=== PATIENT | male | born 1965 | race Caucasian/White ===

== ENCOUNTER 2018-09-18 09:09 | Outpatient (REF) | payer OTHER, SELFPAY ==
[2018-09-18 21:27] LABS: Hemoglobin A1C 5.3 % (4.5-6.2)
[2018-09-18 21:29] LABS: ALT 24 U/L (12-78); AST 19 U/L (15-37); Alkaline Phosphatase 66 U/L (46-116); BUN 17 mg/dL (7-18); Bilirubin, Total 0.7 mg/dL (0.2-1.0); CREATININE 0.92 mg/dL (0.70-1.30); Calcium 9.9 mg/dL (8.5-10.1); Chloride 104 mmol/L (98-107); Cholesterol 197 mg/dL (50-200); Glucose 101 mg/dL (70-100); HDL Cholesterol 54 mg/dL (40-60); LDL CHOLESTEROL 109 mg/dL (<100); Potassium 4.4 mmol/L (3.5-5.1); Sodium 142 mmol/L (136-145); Triglyceride 170 mg/dL (30-150)
== END 2018-09-18 09:29 ==
LOC: NCHCN 09:09
PROVIDERS: PCP Physician Assistant Medical; Visit Provider Physician Assistant Medical
DX: Z00.00 Encounter for general adult medical examination without abnormal findings (principal); E78.5 Hyperlipidemia, unspecified; I10 Essential (primary) hypertension; R73.01 Impaired fasting glucose
CPT/HCPCS: 80053; 80061; 83721; 83036

== ENCOUNTER 2021-02-09 16:00 | Outpatient (REF) | payer OTHER, SELFPAY ==
[2021-02-10 11:26] LABS: COVID-19 RT-PCR UVMMC Result Negative (Negative)
== END 2021-02-09 16:01 | disposition home or self-care (01) ==
LOC: LBN 16:00
PROVIDERS: PCP Physician Assistant Medical; Visit Provider Nurse Practitioner Family
DX: J06.9 Acute upper respiratory infection, unspecified (principal); Z20.822 Contact with and (suspected) exposure to COVID-19
CPT/HCPCS: U0003

== ENCOUNTER 2023-01-20 16:24 | Outpatient (CLI) | payer OTHER, SELFPAY ==
--- NOTE | 2023-01-20 | DI.RAD_ITS ---
Exam(s) XR LUMBAR SPINE COMPLETE EXAM: XR LUMBAR SPINE COMPLETE CLINICAL HISTORY: LUMBAR RADICULOPATHY, M54.16. TECHNIQUE: 2D digital imaging was performed. Five views. COMPARISON: CR LUMBAR SPINE COMPLETE from 05/29/2015 MR MRI - LUMBAR SPINE WO CONTRAST from 07/15/2015 FINDINGS: BONES: No fracture or destructive lesion. Vertebral body heights are maintained. No facet hypertroph y identified. DISKS: Severe narrowing of the L4-5 disc space and endplate osteophytes eccentric toward the left. F indings have slightly worsened compared to 2015. Mild loss of disc height at L5-S1 small endplate os teophytes. The remaining intervertebral disc spaces are maintained. No spondylolysis or spondyloli sthesis. No scoliosis. ALIGNMENT: Lumbar spinal alignment is within normal limits. SOFT TISSUE: Normal. IMPRESSION: Severe degenerative disc changes at L4-5 with some worsening compared with 2014. DATA REPOSITORY: RADIATION DOSE DELIVERED:
--- NOTE | 2023-01-20 16:27 | DI.RAD_ITS ---
Exam(s) XR HIP LT COMPLETE AP PELVIS EXAM: XR HIP LT COMPLETE AP PELVIS CLINICAL HISTORY: STRAIN OF MUSCLE, FASCIA AND TENDON OF LT HIP, INITIAL ENCOUNTER, S76.012A. TECHNIQUE: 2D digital imaging was performed. Two views. COMPARISON: No exams were available for comparison FINDINGS: BONES: No acute fracture is present. No bony destructive lesion is seen. There is severe narrowing of the right hip joint space with a [id number] appearance. prominent periarticular spurring. Mod erate narrowing of the left hip joint space and moderate periarticular spurring. SI joints and pubic symphysis are unremarkable. JOINTS: No dislocation present. SOFT TISSUE: Normal. IMPRESSION: Severe degenerative changes of the right hip. Moderate degenerative changes of the left hip. DATA REPOSITORY: RADIATION DOSE DELIVERED:
== END 2023-01-20 16:44 ==
LOC: DI 16:24
PROVIDERS: PCP Physician Assistant Medical; Visit Provider Physician Assistant Medical
DX: M16.0 Bilateral primary osteoarthritis of hip (principal); M51.36 Other intervertebral disc degeneration, lumbar region; M54.16 Radiculopathy, lumbar region
CPT/HCPCS: 72110; 73502

== ENCOUNTER 2023-03-07 14:42 | Outpatient (CLI) | payer OTHER, SELFPAY ==
--- NOTE | 2023-03-07 06:00 | DI.RAD_ITS ---
Exam(s) XR PAIN CLINIC FLUORO JOINT IN EXAM: XR PAIN CLINIC FLUORO JOINT IN CLINICAL HISTORY: Dx: Hip Pain. TECHNIQUE: Fluoroscopy was provided for the referring physician for guidance with performing pain cl inic injection procedure. COMPARISON: No exams were available for comparison FINDINGS: Please see procedure note for details. Fluoro time: 32.6 seconds RADIATION DOSE DELIVERED: marce Chester=16.7 mGy
[2023-03-07 14:50] VITALS: BP 106/76; PULSE 56; RESP 20; TEMP 36.5; O2SAT 96
--- NOTE | 2023-03-07 15:15 | DI.RAD_ITS ---
Exam(s) XR PAIN CLINIC FLUORO JOINT IN EXAM: XR PAIN CLINIC FLUORO JOINT IN CLINICAL HISTORY: Dx: hip pain. TECHNIQUE: Fluoroscopy was provided for the referring physician for guidance with performing pain cl inic injection procedure. COMPARISON: No exams were available for comparison FINDINGS: Please see procedure note for details. Fluoro time: 18.9 seconds RADIATION DOSE DELIVERED: marce Chester=9.97 mGy
--- NOTE | 2023-03-07 15:30 | PDOC.PAIN ---
Date of service: 03/07/23 Time of Service: 15:30 Pain Managment Procedure Note Procedure Note Procedure Note: PROCEDURE NOTE Bilateral INTRA-ARTICULAR HIP JOINT STEROID INJECTION Date of Service: March 07, 2023 Patient:? Prabhu Howell? Provider:? Marquis Suarez DO, MPH Prabhu Howell has been [facility] to [facility] for Bilateral intra-articular hip joint injection. Pre-operative diagnosis: Knee Osteoarthritis Post-operative diagnosis: Same Pre-procedure pain: VAS=7/10 COMMENTS: He was sent by his orthopedic surgeon for this procedure. He has severe OA to both hips and will likely have FRANKIE sooner than later. Prabhu?was interviewed and the medical record was reviewed.? There were no medical, pharmacologic, radiographic or other structural contraindications to attempting fluoroscopically guided LEFT intra-articular hip joint injection.? Risks and expected side effects as well as potential benefit of the procedure were reviewed with Prabhu, and the patient's voiced concerns were addressed.? The printed consent form was signed.? Standard time-out procedure was performed. Prabhu was placed in the supine position on the fluoroscopy table and the pulse oximeter was applied. The skin entry point for approaching superolateral aspect of the LEFT lateral hip area was identified under the most advantageous fluoroscopic view and marked. Following thorough Chlorhexadine preparation of the skin and draping, 1% lidocaine infiltration of the skin entry point and subcutaneous tissues was accomplished using a 1.5 25G needle. Next, the 3.5 25G needle was advanced to the the area between the head and neck of the femur under fluoroscopic guidance into the LEFT hip joint. Intra-articular placement was confirmed by a clear arthrogram resulting from the injection of 1 ml Omnipaque 240. Next, 40 mg Depo-Medrol mixed with 3 mls of 1% Lidocaine was injected into the joint. This was followed with one ml of 1% lidocaine to clear the needle of any steroid. (48 mls of Omnipaque was wasted). There was no unusual discomfort expressed by Prabhu. The needle was withdrawn without difficulty. Prabhu was observed and was without hemodynamic, neurologic, or allergic reactions.? Fluoroscopic images were digitally archived. The exact procedure was completed on the right side. Prabhu's vital signs were stable throughout the procedure and were as recorded in the docflowsheet by the nursing staff. If given, dosages of intravenous drugs for anxiolysis and analgesia were documented in MAR. Follow up plans and appointments were discussed with Prabhu.? Post procedure instruction was given as documented in nursing documentation and having met discharge criteria, [facility]. COMMENTS: No apparent complications. Post-procedure pain: VAS= 2/10. Prabhu to contact [facility] as needed. If at least 50% improvement in pain and/or function for at least 3 months is achieved, this procedure can be repeated. I personally completed the entire procedure. MARQUIS SUAREZ DO, MPH ABPM[employer]R - Subspecialty board certification in Pain Medicine [facility] [facility]
[2023-03-07] MEDS: methylPREDNISolone ACETATE 40 MG/ML VIAL IJ (15:35)
[2023-03-07] MEDS: Lidocaine 2% Pres-Free 5 ML VIAL IJ (15:35)
[2023-03-07 15:36] VITALS: PULSE 73; O2SAT 100
[2023-03-07] MEDS: Omnipaque 240 MG/ML 50 ML BTL IJ (15:38)
== END 2023-03-07 14:43 | disposition home or self-care (01) ==
LOC: PC 14:42
PROVIDERS: PCP Physician Assistant Medical; Visit Provider Preventive Medicine Occupational Medicine
DX: M16.0 Bilateral primary osteoarthritis of hip (principal)
CPT/HCPCS: 20610; 77002; J1030; Q9967

== ENCOUNTER 2023-04-19 20:47 | Outpatient (REF) | payer OTHER, SELFPAY ==
[2023-04-19 19:46] LABS: Abs Immature Grans 0.03 10^3/uL (0.0-0.06); Absolute Basophil Count 0.12 10^3/uL (0.0-0.2); Absolute Eosinophil Count 0.33 10^3/uL (0.0-0.7); Absolute Lymphocyte Count 3.54 10^3/uL (1.2-3.4); Absolute Monocyte Count 0.81 10^3/uL (0.1-0.8); Absolute Neutrophil Count 5.62 10^3/uL (1.2-6.7); Basophils % 1.1; Eosinophils % 3.2; HCT 44.7 % (40.0-50.0); HGB 15.1 g/dL (13.5-17.5); Immature Grans % 0.3; Lymphocytes % 33.9; MCH 29.5 pg (27.0-33.0); MCHC 33.8 % (32.0-36.0); MCV 87 fL (80-95); MPV 10.1 fL (8.0-11.0); Monocytes % 7.8; Neutrophils % 53.7; Platelet Count 438 10^3/uL (130-400); RBC 5.12 10^6/uL (4.36-5.78); RDW 14.6 % (11.8-14.1); WBC 10.45 10^3/uL (4.4-10.8)
[2023-04-19 19:56] LABS: ALT 30 U/L (16-63); AST 20 U/L (15-37); Alkaline Phosphatase 89 U/L (46-116); Anion Gap 9.4 mmol/L (3-11); BUN 19 mg/dL (7-18); Bilirubin, Total 0.3 mg/dL (0.2-1.0); CO2 25.6 mmol/L (21.0-32.0); Calcium 9.9 mg/dL (8.5-10.1); Calculated LDL 109 mg/dL (<100); Chloride 104 mmol/L (98-107); Cholesterol 213 mg/dL (<200); Glucose 138 mg/dL (74-106); HDL Cholesterol 55 mg/dL (40-60); Potassium 3.6 mmol/L (3.5-5.1); Sodium 139 mmol/L (136-145); Total Protein 7.9 g/dL (6.4-8.2); Triglyceride 247 mg/dL (<150)
[2023-04-19 20:13] LABS: Hemoglobin A1C 5.3 % (<5.7)
== END 2023-04-19 20:48 | disposition home or self-care (01) ==
LOC: NCHCN 20:47
PROVIDERS: PCP Physician Assistant Medical; Visit Provider Physician Assistant Medical
DX: E78.5 Hyperlipidemia, unspecified (principal); R73.01 Impaired fasting glucose; I10 Essential (primary) hypertension; Z00.00 Encounter for general adult medical examination without abnormal findings
CPT/HCPCS: 80053; 80061; 83036; 85025

== ENCOUNTER 2023-04-24 09:50 | Outpatient (CLI) | payer OTHER, SELFPAY ==
--- NOTE | 2023-04-24 09:45 | DI.RAD_ITS ---
Exam(s) XR PELVIS AP EXAM: XR PELVIS AP CLINICAL HISTORY: bilateral hip OA. TECHNIQUE: 2D digital imaging was performed. COMPARISON: CR XR HIP LT COMPLETE AP PELVIS from 01/20/2023 FINDINGS: Single AP view No evidence of pelvic nor hip fracture. Again noted are degenerative changes both hips, advanced gonzales aterally but more prominent on the right side where there is [id number] narrowing of the superior a spect of the hip joint and degenerative subarticular cysts. No osseous lesions. IMPRESSION: Advanced hip joint degenerative changes again noted, unchanged from 01/20/2023. This is again noted be more severe on the right side. DATA REPOSITORY: RADIATION DOSE DELIVERED:
== END 2023-04-24 09:51 | disposition home or self-care (01) ==
LOC: DIORS 09:50
PROVIDERS: PCP Physician Assistant Medical; Visit Provider Student in an Organized Health Care Education/Training Program
DX: M16.0 Bilateral primary osteoarthritis of hip (principal)
CPT/HCPCS: 72170

== ENCOUNTER 2023-06-09 02:42 | Outpatient (CLI) | payer OTHER, SELFPAY ==
[2023-06-09 10:49] LABS: HCT 44.7 % (40.0-50.0); HGB 15.4 g/dL (13.5-17.5); MCH 29.8 pg (27.0-33.0); MCHC 34.5 % (32.0-36.0); MCV 87 fL (80-95); MPV 9.4 fL (8.0-11.0); Platelet Count 325 10^3/uL (130-400); RBC 5.16 10^6/uL (4.36-5.78); RDW 13.8 % (11.8-14.1); RDW-SD 44.1 fL
[2023-06-09 11:04] LABS: Anion Gap 11.7 mmol/L (3-11); BUN 19 mg/dL (7-18); CO2 23.3 mmol/L (21.0-32.0); Calcium 9.3 mg/dL (8.5-10.1); Chloride 103 mmol/L (98-107); Glucose 103 mg/dL (74-106); Potassium 4.3 mmol/L (3.5-5.1); Sodium 138 mmol/L (136-145)
== END 2023-06-09 02:43 | disposition home or self-care (01) ==
LOC: LBO 02:42
PROVIDERS: PCP Physician Assistant Medical; Visit Provider Student in an Organized Health Care Education/Training Program
DX: M16.0 Bilateral primary osteoarthritis of hip (principal); Z01.818 Encounter for other preprocedural examination
CPT/HCPCS: 36415; 80048; 85027; 86850; 86900; 86901

== ENCOUNTER 2023-07-10 12:06 | Outpatient (CLI) | payer OTHER, SELFPAY ==
--- NOTE | 2023-07-10 11:25 | DI.RAD_ITS ---
Exam(s) XR HIP PELVIS ADULT BL EXAM: XR HIP PELVIS ADULT BL CLINICAL HISTORY: 1ST POST OP BILAT FRANKIE. TECHNIQUE: 2D digital imaging was performed. Three images were obtained. AP pelvis and lateral view s were obtained. COMPARISON: CR XR PELVIS AP from 04/24/2023 XA XR HIP LT IN OR from 06/27/2023 XA XR HIP RT IN OR from 06/27/2023 FINDINGS: BONES: There are stable post operative changes of bilateral total hip replacements present. No fract ure or dislocation. JOINTS: The orthopedic hardware is in good position. No evidence of hardware loosening. SOFT TISSUE: Normal. IMPRESSION: Stable postoperative changes. DATA REPOSITORY: RADIATION DOSE DELIVERED:
== END 2023-07-10 12:07 | disposition home or self-care (01) ==
LOC: DIORS 12:06
PROVIDERS: PCP Physician Assistant Medical; Visit Provider Student in an Organized Health Care Education/Training Program
DX: Z96.643 Presence of artificial hip joint, bilateral (principal); Z47.1 Aftercare following joint replacement surgery
CPT/HCPCS: 73521

== ENCOUNTER 2023-08-23 11:32 | Outpatient (REF) | payer OTHER, SELFPAY ==
[2023-08-23 16:16] LABS: ALT 82 U/L (16-63); AST 44 U/L (15-37); Albumin 4.1 g/dL (3.4-5.0); Alkaline Phosphatase 79 U/L (46-116); Anion Gap 8.8 mmol/L (3-11); BUN 19 mg/dL (7-18); Bilirubin, Total 0.7 mg/dL (0.2-1.0); CO2 26.2 mmol/L (21.0-32.0); CREATININE 0.9 mg/dL (0.70-1.30); Calcium 9.3 mg/dL (8.5-10.1); Calculated LDL 67 mg/dL (<100); Chloride 105 mmol/L (98-107); Cholesterol 180 mg/dL (<200); Estimated GFR 98.38 (mL/min/1.73m2); Glucose 102 mg/dL (74-106); HDL Cholesterol 63 mg/dL (40-60); Potassium 4.4 mmol/L (3.5-5.1); Sodium 140 mmol/L (136-145); Total Protein 7.5 g/dL (6.4-8.2); Triglyceride 252 mg/dL (<150)
== END 2023-08-23 11:33 | disposition home or self-care (01) ==
LOC: NCHCN 11:32
PROVIDERS: PCP Physician Assistant Medical; Visit Provider Physician Assistant Medical
DX: E78.5 Hyperlipidemia, unspecified (principal)
CPT/HCPCS: 80053; 80061

== ENCOUNTER 2023-11-23 19:00 | Outpatient (REF) | payer OTHER, SELFPAY ==
[2023-11-23 15:38] LABS: ALT 32 U/L (16-63); AST 20 U/L (15-37); Albumin 3.8 g/dL (3.4-5.0); Alkaline Phosphatase 76 U/L (46-116); Bilirubin, Direct 0.1 mg/dL (0.0-0.2); Bilirubin, Total 0.5 mg/dL (0.2-1.0); Total Protein 6.8 g/dL (6.4-8.2)
[2023-11-23 15:59] LABS: Calculated LDL 34 mg/dL (<100); Cholesterol 161 mg/dL (<200); HDL Cholesterol 51 mg/dL (40-60); Triglyceride 383 mg/dL (<150)
== END 2023-11-23 19:01 | disposition home or self-care (01) ==
LOC: NCHCN 19:00
PROVIDERS: PCP Physician Assistant Medical; Visit Provider Physician Assistant Medical
DX: R74.01 Elevation of levels of liver transaminase levels (principal); E78.5 Hyperlipidemia, unspecified
CPT/HCPCS: 80061; 80076

== ENCOUNTER 2024-05-06 18:27 | Outpatient (REF) | payer OTHER, SELFPAY ==
[2024-05-06 20:27] LABS: ALT 41 U/L (16-63); AST 33 U/L (15-37); Albumin 3.8 g/dL (3.4-5.0); Alkaline Phosphatase 79 U/L (46-116); Anion Gap 11.4 mmol/L (3-11); BUN 21 mg/dL (7-18); CO2 23.6 mmol/L (21.0-32.0); CREATININE 1.4 mg/dL (0.70-1.30); Calculated LDL 39 mg/dL (<100); Chloride 107 mmol/L (98-107); Cholesterol 165 mg/dL (<200); Estimated GFR 57.54 (mL/min/1.73m2); Glucose 132 mg/dL (74-106); HDL Cholesterol 49 mg/dL (40-60); Potassium 3.9 mmol/L (3.5-5.1); Sodium 142 mmol/L (136-145); Total Protein 7.4 g/dL (6.4-8.2); Triglyceride 387 mg/dL (<150)
== END 2024-05-06 18:28 | disposition home or self-care (01) ==
LOC: NCHCN 18:27
PROVIDERS: PCP Physician Assistant Medical; Visit Provider Physician Assistant Medical
DX: E78.5 Hyperlipidemia, unspecified (principal); Z00.00 Encounter for general adult medical examination without abnormal findings
CPT/HCPCS: 80053; 80061

== ENCOUNTER 2024-05-24 08:40 | Emergency (ER) | payer OTHER, SELFPAY ==
[2024-05-24 08:46] VITALS: BP 138/78; PULSE 74; RESP 15; TEMP 37; O2SAT 96
--- NOTE | 2024-05-24 09:00 | ED.GENADUL_ITS ---
Discharge Plan Disposition Patient Disposition: Home Condition: Stable Discharge Details Clinical Impression: Abscess Primary Care Provider: Terese Cha ED Provider: Jone Alegria Home Meds and New Rx's Prescriptions: No Action atorvastatin 10 mg tablet 10 mg PO DAILY calcium 26-vit D3-magnesium 15 167 mg calcium- 1.67 mcg-83 mg capsule 1 cap PO DAILY Flintstones Multivitamin Tablet,Chewable 1 tab PO DAILY Discharge Instructions Instructions: Abscess Incision and Drainage Additional Instructions: You were seen in the emergency department for the abscess of your right chest area, this was drained by incision, please perform hot compresses to the area often over the next couple days as we discussed, try to expel any leftover purulent material out of the abscess. You may want to look into making an outpatient surgery visit if this is a recurrent abscess as it may need excision as it could be an infected sebaceous cyst. We updated your tetanus today. Please return to the emergency department for any signs of increasing infection like redness to the area, significant increase in swelling, fever and other systemic symptoms Referrals: Terese Cha PA [Primary Care Provider] - Discharge Data Discharge Date/Time-TO BE ENTERED AT DEPARTURE: 05/24/24 09:57 HPI General Date/Time Provider Initiated Documentation: 05/24/24 08:52 . 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 Quality described as mildly red and tender, no radiation to active drainage, fever, red streaking, nausea. Severity is described as moderate. Palliating factors include nothing specific. Provoking factors include nothing specific. Events leading up to the incident/Associated Symptoms: Patient requesting Tdap update. Patient not anticoagulated. Related Data Home Medications ?Medication ?Instructions ?Recorded ?Confirmed atorvastatin 10 mg tablet 10 mg PO DAILY 06/09/23 05/24/24 calcium 167 mg-vitamin D3 1.67 1 cap PO DAILY 06/27/23 05/24/24 mcg-magnesium 83 mg capsule pediatric multivitamin 1 tab PO DAILY 06/27/23 05/24/24 (Flintstones Multivitamin chewable tablet) Allergies Allergy/AdvReac Type Severity Reaction Status Date / Time No Known Allergies Allergy Unverified 05/24/24 08:49 General Stated Complaint: RashLesion ANGELIA: 4 Review of Systems All systems reviewed & are unremarkable except as noted in HPI and below Exam Narrative Exam Narrative: GENERAL APPEARANCE: Well-nourished, non-toxic, awake and alert, atraumatic, no acute distress. SKIN: Warm, pink, dry, 1 x 2 cm abscess in the anterior chest that is mildly erythematous without lymphadenitis, no active drainage HEAD: Normocephalic, atraumatic, normal hair distribution for gender/age. EYES: Normal conjunctiva, no exudates on lids/lashes. ENT: Nares patent, no circumoral cyanosis, no facial swelling NECK: Supple, trachea midline, painless cervical ROM. LUNGS/CHEST: Non-labored respirations, normal A/P diameter, symmetrical expansion, no chest wall deformity HEART (CV/PV): No peripheral edema, no JVD. ABDOMEN: Soft, non-distended, no guarding. MSK: Normal ROM, no swelling/deformity to bilateral UEs or LEs, moving all extremities without weakness, no cyanosis, spine midline without tenderness, nor mal curvature. NEURO: Mental Status AAOx4 - alert to person, place, time, events No facial droop, no forehead involvement. Motor: No focal weakness - strength 5/5 in bilateral UEs and LEs, proximal and distal, symmetric. Sensory: sensation intact to light touch globally. Gait normal: patient ambulated without ataxia into ED room. PSYCH: euthymic, cooperative, pleasant, appropriate speech Course Vital Signs Vital signs: Vital Signs Temperature 37.0 C 05/24/24 08:46 Pulse 74 05/24/24 08:46 Respiratory Rate 15 05/24/24 08:46 Blood Pressure 138/78 05/24/24 08:46 Pulse Oximetry 96 05/24/24 08:46 Temperature 37.0 C 05/24/24 08:46 Temperature Source Temporal Artery Scan 05/24/24 08:46 Pulse 74 05/24/24 08:46 Respiratory Rate 15 05/24/24 08:46 Respiratory Effort Normal 05/24/24 08:48 Blood Pressure 138/78 05/24/24 08:46 Blood Pressure Position Sitting 05/24/24 08:46 Pulse Oximetry 96 05/24/24 08:46 Pain Level 1 05/24/24 08:46 Procedures Abscess I/D Site: Chest Side (if applicable): Right Sedation/analgesia: None Local Anesthetic: Lidocaine 1% and With Epi Amount of anesthesia used (mL): 3 Technique: Incised with #11 Blade Amount of fluid expressed (mL): 2 Irrigation: Yes Packing used?: None Complications: Pain Medical Decision Making This dictation utilizes [id number]-[id number] dictation software and may contain unedited grammatical errors. 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 Quality described as mildly red and tender, no radiation to active drainage, fever, red streaking, nausea. Severity is described as moderate. Palliating factors include nothing specific. Provoking factors include nothing specific. Events leading up to the incident/Associated Symptoms: Patient requesting Tdap update. Patients' medical history: Noncontributory. Family and social history: noncontributory. Pertinent exam findings / vital signs include -1 x 2 cm abscess in the anterior chest that is mildly erythematous without lymphadenitis, no active drainage, nontoxic vitals. Differential / pathologies of concern include abscess, mild cellulitis. Diagnostic studies of: -None. Interventions of: -Incision and drainage, updated Tdap. ED Course/Assessment/Plan: 59-year-old male has a simple cutaneous abscess to the anterior chest, was drained by incision and drainage after using 3 mL of 1% lidocaine with epi and incising with a 10 blade, it was fairly thick material and I am suspicious for an infected sebaceous cyst, I did certified credit counselor the patient to possibly follow-up with general surgery for definitive excision at some point in the future and I did recommend continued hot compresses and manual expression of any purulent material, strict return criteria for any increasing signs of infection like redness for possible antibiotics at that time. Findings not consistent with significant cellulitis. Disposition of Abscess. Patient verbalized understanding of the plan and return to ED criteria and engaged in shared decision making. Medical Records Medical records reviewed: Yes I reviewed the patient's medical records. Quality:SDOH Health Related Social Needs: No Data to Display PFSH All Active Problems (Updated 05/24/24 @ 09:21 by KALEY Harris) Abscess (Acute) History of bilateral total hip arthroplasty (Acute 06/27/23) Hyperlipidemia (Acute) Osteoarthritis of hips, bilateral (Chronic) Medical History Lumbar radiculopathy IFG (impaired fasting glucose) Tubular adenoma of colon Acute rhinosinusitis Pollen Surgical History History of tonsillectomy H/O lumbar discectomy L4 History of nasal surgery repair broken nose H/O colonoscopy with polypectomy Status post discectomy for herniated nucleus pulposus Flor [place] 2019 Social History Smoking/Tobacco Use Status: Current-Occasional Tobacco Type: cigarettes Smoking risk assessment performed?: Yes Alcohol Intake: current Alcohol Intake frequency: 0-2 drinks per day Alcohol type: beer Drug use: Never Substance use type: does not use Details: no nicotine since 06/23/23 Housing: house Do you feel safe at home: Yes Do you feel safe in your relationship?: Yes PAWSS Have you Been Recently Intoxicated or Drunk Within the Last 30 days?: No Have you Ever Experienced Previous Episodes of Alcohol Withdrawal?: No Have you ever Experienced Withdrawal Seizures?: No Have you ever Experienced Delirium Tremens(DT)s?: No Have you ever undergone Alcohol Rehabilitation Treatment (i.e, inpt ot outpatient treatment programs)?: No Have you ever Experienced Blackouts?: No Have you ever Combined Alcohol with other Downers within the last 90 days?: No Have you ever Combined Alcohol with any other Substance of Abuse during the last 90 days?: No Result: 0
[2024-05-24] MEDS: Lidocaine 1% Pres-Free W/EPI 1/200,000 30 ML VIAL (09:57)
== END 2024-05-24 09:57 | disposition home or self-care (01) ==
PROVIDERS: Emergency Provider Physician Assistant; PCP Physician Assistant Medical
DX: L02.213 Cutaneous abscess of chest wall (principal)
CPT/HCPCS: 10060; 90471; 90715; J2004

== ENCOUNTER 2024-07-01 15:22 | Outpatient (CLI) | payer OTHER, SELFPAY ==
--- NOTE | 2024-07-01 11:18 | DI.RAD_ITS ---
Exam(s) XR HIP RT AP LAT ONLY EXAM: XR HIP RT AP LAT ONLY INDICATION: annual f/u BILAT FRANKIE. COMPARISON: CR XR HIP PELVIS ADULT BL from 07/10/2023 CR XR HIP LT AP LAT ONLY from 07/01/2024 TECHNIQUE: 2D digital imaging was performed. Two views. FINDINGS: Stable alignment right hip prosthesis. No abnormal surrounding bony lucencies. DATA REPOSITORY: RADIATION DOSE DELIVERED:
--- NOTE | 2024-07-01 11:18 | DI.RAD_ITS ---
Exam(s) XR HIP LT AP LAT ONLY EXAM: XR HIP LT AP LAT ONLY CLINICAL HISTORY: ANNUAL F/U BILAT THAs. TECHNIQUE: 2D digital imaging was performed. COMPARISON: CR XR HIP PELVIS ADULT BL from 07/10/2023 FINDINGS: Two views Stable position alignment components of the left hip prosthesis. No fracture or loosening evident. IMPRESSION: Stable satisfactory appearance DATA REPOSITORY: RADIATION DOSE DELIVERED:
== END 2024-07-01 15:23 | disposition home or self-care (01) ==
LOC: DIORS 15:22
PROVIDERS: PCP Physician Assistant Medical; Visit Provider Student in an Organized Health Care Education/Training Program
DX: Z96.643 Presence of artificial hip joint, bilateral (principal); Z47.1 Aftercare following joint replacement surgery
CPT/HCPCS: 73502

== ENCOUNTER 2025-06-16 13:36 | Outpatient (REF) | payer OTHER, SELFPAY ==
[2025-06-16 17:13] LABS: ALT 37 U/L (10-49); AST 30 U/L (<34); Albumin 4.3 g/dL (3.4-5.0); Alkaline Phosphatase 60 U/L (46-116); Anion Gap 7.5 mmol/L (3-11); BUN 19 mg/dL (9-23); Bilirubin, Total 0.40 mg/dL (0.2-1.2); CO2 20.5 mmol/L (20.0-31.0); Calcium 9.0 mg/dL (8.3-10.6); Chloride 114 mmol/L (98-107); Cholesterol 175 mg/dL (<200); Glucose 102 mg/dL (74-106); HDL Cholesterol 60 mg/dL (>40); Potassium 4.3 mmol/L (3.5-5.1); Sodium 142 mmol/L (136-145); Total Protein 6.7 g/dL (5.7-8.2)
[2025-06-16 17:38] LABS: Hemoglobin A1C 5.4 % (<5.7)
[2025-06-16 23:01] LABS: PSA, Screening 0.6 ng/mL (<=4.5)
== END 2025-06-16 13:37 | disposition home or self-care (01) ==
LOC: NCHCN 13:36
PROVIDERS: PCP Physician Assistant Medical; Visit Provider Physician Assistant Medical
DX: Z13.1 Encounter for screening for diabetes mellitus (principal); E78.5 Hyperlipidemia, unspecified; Z12.5 Encounter for screening for malignant neoplasm of prostate
CPT/HCPCS: 80053; 80061; 84153; 83036